=== PATIENT | female | born 1955 ===

== ENCOUNTER 2024-03-28 06:46 | Day surgery (SDC) | payer OTHER, MEDICARE ==
[~2024-03-28] VITALS: Ht 160 cm; Wt 55.8 kg
[2024-03-28] MEDS ORDERED: SIMETHICONE 40 MG/0.6 ML ML ONE (07:57)
[2024-03-28] MEDS ORDERED: MEPERIDINE 100 MG INJ. 100 MG/ML VIAL ONE (07:57)
[2024-03-28] MEDS ORDERED: MIDAZOLAM HCL 5 MG/5 ML VIAL ONE (07:57)
[2024-03-28 10:14] VITALS: O2SAT 96
[2024-03-28 11:23] VITALS: BP_SYST 105; PULSE 65; RESP 16
== END 2024-03-28 10:30 | disposition home or self-care (01) ==
LOC: SDS 06:46 → SMU 06:48 → SDS 10:30
PROVIDERS: ATTEND Internal Medicine Gastroenterology
DX: Z12.11 Encounter for screening for malignant neoplasm of colon (principal); K29.60 Other gastritis without bleeding; K76.9 Liver disease, unspecified; K64.8 Other hemorrhoids; K44.9 Diaphragmatic hernia without obstruction or gangrene; E03.9 Hypothyroidism, unspecified; Z98.890 Other specified postprocedural states; Z88.0 Allergy status to penicillin; Z91.013 Allergy to seafood; Z80.0 Family history of malignant neoplasm of digestive organs
CPT/HCPCS: 43239; 99152; 87081; 36415; 88305; 88312; 88313; 99153; G0121; G0378; J2250; J2175; 45378; G0105